=== PATIENT | male | born 1950 | race Caucasian/White ===

== ENCOUNTER 2021-08-14 06:08 | Day surgery (SDC) | payer OTHER, MEDICARE ==
[2021-08-08 12:03] VITALS: BMI 36.4
[2021-08-14] MEDS ORDERED: MIDAZOLAM HCL 2 MG/2 ML SINGLE DOSE VIAL ONE (07:17)
[2021-08-14] MEDS ORDERED: ceFAZolin SODIUM 1 GM VIAL ONE ×2 (07:17→07:21)
[2021-08-14] MEDS ORDERED: PROPOFOL 20 ML ONE ×3 (07:17→09:02)
[2021-08-14] MEDS ORDERED: ERYTHROMYCIN 0.5% OPHTHALMIC OINTMENT 3.5 GM TUBE ONE (07:21)
[2021-08-14] MEDS ORDERED: POVIDONE-IODINE 5% OPHTHALMIC PREP 30 ML SOLUTION ONE (07:21)
[2021-08-14] MEDS ORDERED: THROMBIN (BOVINE) 5,000 UNIT VIAL TP ONE (07:21)
[2021-08-14] MEDS ORDERED: LIDOCAINE HCL/PF 1% SDV 5ML VIAL ONE (07:21)
[2021-08-14] MEDS ORDERED: TETRACAINE 0.5% OPHTH SOLN 2 ML BOTTLE ONE (07:21)
[2021-08-14] MEDS ORDERED: BUPIVACAINE HCL 100 ML ONE (07:25)
[2021-08-14] MEDS ORDERED: FENTANYL CITRATE/PF 50 MCG/ML VIAL ONE (09:33)
[2021-08-14] MEDS ORDERED: oxyCODONE HCL 5 MG TABLET PO PRN (09:34)
[2021-08-14] MEDS ORDERED: ONDANSETRON 4 MG/2 ML VIAL IVPUSH PRN (09:34)
[2021-08-14] MEDS ORDERED: LACTATED RINGERS SOLUTION 1,000 ML IV SCH (09:45)
[2021-08-14 10:19] VITALS: TEMP 100
[2021-08-14 10:56] VITALS: BP 116/64; PULSE 50
== END 2021-08-14 11:06 | disposition home or self-care (01) ==
LOC: FASU 06:08
PROVIDERS: ATTEND Ophthalmology
PROC: 08SQ0ZZ Reposition Right Lower Eyelid, Open Approach (ICD-10-PCS; 2021-08-14)
PROC: 08BTXZX Excision of Left Conjunctiva, External Approach, Diagnostic (ICD-10-PCS; 2021-08-14)
PROC: 08BSXZX Excision of Right Conjunctiva, External Approach, Diagnostic (ICD-10-PCS; 2021-08-14)
PROC: 08SR0ZZ Reposition Left Lower Eyelid, Open Approach (ICD-10-PCS; principal; 2021-08-14 08:23)
DX: H02.102 Unspecified ectropion of right lower eyelid (principal); H02.105 Unspecified ectropion of left lower eyelid; H04.223 Epiphora due to insufficient drainage, bilateral; H11.823 Conjunctivochalasis, bilateral; H04.563 Stenosis of bilateral lacrimal punctum
CPT/HCPCS: 94760